=== PATIENT | male | born 1990 | race Caucasian/White ===

== ENCOUNTER 2019-03-26 22:44 | Emergency (ER) | payer BC ==
[~2019-03-26] VITALS: Ht 167.6 cm; Wt 59.0 kg
[2019-03-26 22:54] VITALS: BP 121/73
== END 2019-03-27 00:24 | disposition home or self-care (01) ==
LOC: ER 22:46
DX: S50.852A Superficial foreign body of left forearm, initial encounter (principal); S51.842A Puncture wound with foreign body of left forearm, initial encounter; W45.8XXA Other foreign body or object entering through skin, initial encounter; Y93.89 Activity, other specified; Y92.89 Other specified places as the place of occurrence of the external cause; Y99.8 Other external cause status
CPT/HCPCS: 73090-TC